=== PATIENT | male | born 1930 | race Caucasian/White ===

== ENCOUNTER 2016-12-22 22:41 | Emergency (ER) | payer OTHER, MEDICARE ==
[~2016-12-22] VITALS: Ht 165.1 cm; Wt 56.7 kg
[~2016-12-22 22:41] MED LIST: CIPRO250 MG PO; LOPRESSOR 25MG25 MG PO; METFORMIN HCL1000 MG PO; PERCOCET 325 MG1 TA2 PO; PRAVASTATIN SOD20 M1; PRINIVIL 5MG5 MG PO; TESSALON PERLE100 M1 PO
--- NOTE | 2016-12-22 22:55 | ED CARDIAC/CP/PALPITATIONS ---
History of Present Illness General Chief Complaint: Chest Pain Stated Complaint: CP Source: patient, family Exam Limitations: no limitations Vital Signs & Intake/Output Vital Signs & Intake/Output Vital Signs Date Time Temp Pulse Resp B/P Pulse O2 O2 Flow FiO2 Ox Delivery Rate 12/23 0306 96.6 83 20 101/60 97 Room Air 12/22 2342 96 12/228 Room Air 12/227 96.9 96 20 119/58 98 Room Air ED Intake and Output 12/23 0000 12/22 1200 Intake Total 400 Output Total Balance 400 Intake, IV 400 Patient 125 lb Weight Allergies Coded Allergies: NO KNOWN ALLERGIES (08/17/11) Reconcile Medications Benzonatate (Tessalon Perle) 100 MG CAPSULE 1 CAP PO TID PRN cough Metoprolol Tartrate (Lopressor) 25 MG TAB 1 TAB PO BID BP (Reported) Triage Nurses Notes Reviewed? yes Onset: Abrupt Duration: hour(s): (3) Timing: multiple episodes today Quality/Severity: sharp, stabbing Location: LEFT CHEST Radiation: back Activities at Onset: sleep Aspirin Today: no aspirin today HPI: This is an 86-year-old male with history of known lung cancer status post last radiation treatment one month ago presents to the ER with chief complaint of left-sided sharp chest pain that began 3 hours ago while lying down in bed. He states that it is sharp and lasts for a few seconds. No radiation of the pain. Positive associated cough with white phlegm which she states is been there for a long time. Denies any fever or chills. History of previous angioplasty more than 20 years ago. Patient follows with Dr. Meléndez and with Dr. PENG. No recent chemotherapy. The patient also reports that he is having issues with hernias and he is going to see Dr. Joe on Friday for them. Denies any vomiting or diarrhea. Denies any abdominal pressure or distention. Past History Travel History Traveled to [place] past 21 day No Medical History Any Pertinent Medical History? see below for history Neurological: NONE EENT: NONE Cardiovascular: hypertension, hyperlipidemia Respiratory: NONE Gastrointestinal: NONE Hepatic: NONE Renal: NONE Musculoskeletal: NONE Psychiatric: NONE Endocrine: diabetes Cancer(s): lung cancer Surgical History Surgical History: non-contributory Psychosocial History Who do you live with Spouse Services at Home None What is your primary language Cook Islander Family History Hx Contributory? No Review of Systems Review of Systems Constitutional: Denies: chills, fever. EENTM: Reports: no symptoms. Respiratory: Reports: hemoptysis, short of breath, sputum production. Cardiovascular: Reports: chest pain. Denies: palpitations. GI: Reports: abdominal pain. Genitourinary: Denies: discharge, dysuria. Musculoskeletal: Reports: no symptoms. Skin: Reports: no symptoms. Neurological/Psychological: Reports: anxiety. Hematologic/Endocrine: Denies: bruising, bleeding, polyuria, polydipsia. Immunologic/Allergic: Denies: splenectomy. All Other Systems: Reviewed and Negative Physical Exam Physical Exam General Appearance: well developed/nourished, alert, awake, anxious, mild distress Head: atraumatic, normal appearance Eyes: Bilateral: normal appearance, PERRL, EOMI. Ears, Nose, Throat: normal pharynx, hearing grossly normal Neck: normal inspection, supple, full range of motion Respiratory: chest non-tender, no respiratory distress, decreased breath sounds Cardiovascular: regular rate/rhythm Peripheral Pulses: 2+ radial (R), 2+ radial (L) Gastrointestinal: normal bowel sounds, soft, non-tender Extremities: normal inspection, normal range of motion, no edema Neurologic/Psych: no motor/sensory deficits, awake, alert, oriented x 3 Skin: intact, normal color, warm/dry Core Measures ACS in differential dx? Yes ASA ordered for poss ACS? Yes-ordered Severe Sepsis Present: No Septic Shock Present: No Progress Differential Diagnosis: AMI, aortic dissection, costochondritis, musculoskeletal pain, myocarditis, pericarditis, pneumonia, pneumothorax, pulmonary embolism, PUD/GERD, rib fracture, unstable angina, METASTATIC DISEASE Plan of Care: Orders Procedure Date/time Status TROPONIN LEVEL 12/23 0300 Complete EKG 12/23 0300 Active Add-on Test (ER Only) 12/22 2340 Active D-DIMER 12/22 2314 Complete TROPONIN LEVEL 12/22 2255 Complete PARTIAL THROMBOPLASTIN TIME 12/22 225 Complete PROTHROMBIN TIME 12/22 225 Complete COMPREHENSIVE METABOLIC PANEL 12/22 225 Complete CBC WITHOUT DIFFERENTIAL 12/22 2254 Complete EKG 12/22 2242 Active Laboratory Tests 12/23/16 0257: Troponin I 0.05 12/22/16 2314: Anion Gap 9, Estimated GFR > 60, BUN/Creatinine Ratio 17.5, Glucose 117 H, Calcium 9.2, Total Bilirubin 0.9, AST 14 L, ALT 26, Alkaline Phosphatase 120, Troponin I 0.04, Total Protein 6.5, Albumin 3.8, Globulin 2.7, Albumin/Globulin Ratio 1.4, PT 11.8, INR 1.13, APTT 33, D-Dimer 314 H, CBC w Diff NO MAN DIFF REQ, RBC 5.27, MCV 81.7, MCH 26.9 L, RDW 14.3, MPV 6.4 L, Gran % 80.2 H, Lymphocytes % 10.7 L, Monocytes % 8.3, Eosinophils % 0.3, Basophils % 0.5, Absolute Granulocytes 5.0, Absolute Lymphocytes 0.7 L, Absolute Monocytes 0.5, Absolute Eosinophils 0, Absolute Basophils 0, PUBS MCHC 33.0 12/23/2016 4:43:31 AM Repeat troponin is 0.05. No longer having any chest pain. Patient is a blistering ED without distress although his systolic blood pressure is 90. The daughter states he wants to go home and is hungry at this time. They've a follow-up plan with Dr. Joe in the office tomorrow and they will call Dr. Meléndez in the office today. I instructed them to return should his symptoms return or should he feel worse. (MARCELA DACOSTA,YOSELYN) Diagnostic Imaging: Viewed by Me: Radiology Read, CT Scan. Discussed w/RAD: Radiology Read, CT Scan. Radiology Impression: PATIENT: MIR ODONNELL PRESENT AGE: 86 PATIENT ACCOUNT NO: [id number] : 31 LOCATION: [facility] ORDERING PHYSICIAN: YOSELYN MEDRANO MD SERVICE DATE: 12/23/16 EXAM TYPE: CAT - CTA CHEST-PULMONARY EMBOLISM EXAMINATION: CT ANGIOGRAM OF THE CHEST WITH AND WITHOUT CONTRAST (CT PULMONARY ANGIOGRAM FOR PE) CLINICAL INFORMATION: Symptoms: LEFT SIDED CHEST PAIN, LUNG CANCER
COMPARISON: Multiple prior studies. Most recent exam chest x-ray 12/22/[address] of the chest 10/11/2016 TECHNIQUE: Prior to contrast administration, noncontrast localization images were obtained. Subsequently, multidetector volumetric imaging was performed from the thoracic inlet to below the diaphragms following the administration of 93 mL Optiray 320 intravenous contrast. No contrast reaction reported Sagittal, coronal, and MIP oblique sagittal reformatted images were obtained on the CT workstation, uploaded to PACS, and reviewed. Total exam dose-length product 246.43 mGy-cm FINDINGS: QUALITY OF STUDY/CONTRAST BOLUS: Satisfactory. PULMONARY ARTERIES: No central or segmental pulmonary emboli. THORACIC AORTA: Atherosclerotic vascular wall calcifications of aorta. The ascending aorta measures 3.1 cm transverse. No dissection of aorta. LUNG: Emphysematous lucency of the lung. There is a spiculated mass in the right lower lobe consistent with history of cancer measuring 2.1 x 1.2 cm. There is a 3 mm nodule in the right upper lobe image 37 (4) Atelectasis thickening of the major fissure on the left lung. PLEURA: Bilateral pleural effusions. The volume is small in the left small to moderate in volume on the right. Pleural effusions are new since CAT scan 07/2016. MEDIASTINUM: Soft tissue fullness in the mediastinum surrounding the subcarina pretracheal retrovascular space and AP window and around the great vessels. Soft tissue density extends into the right hilum. Findings of mediastinal and hilar adenopathy have diminished slightly since CAT scan 2015. No evidence of septal bowing or right heart strain. Enhancing nodule in the right lobe of thyroid measuring 1.6 cm. CHEST WALL/AXILLA: No axillary or internal mammary lymphadenopathy. OSSEOUS STRUCTURES: Multilevel degenerative change of the spine. Lytic and sclerotic lesion of the chest the eighth vertebrae. This correlates with the lesion seen on MR study of 07/31/2016 UPPER ABDOMEN: 1.3 cm nodule in the left adrenal gland. No focal abnormality visualized portions of liver and spleen. 2.1 cm gallstone at the neck of the gallbladder. IMPRESSION: 1. No evidence of pulmonary embolism. 2. Emphysematous changes of lung. 3. Spiculated mass in right lower lobe consistent with history of neoplasm. 3 mm nodule in right upper lobe. 4. Soft tissue density in the mediastinum and right hilum from adenopathy has diminished in prominence since CAT scan 10/11/2016. 5. Mixed lytic and sclerotic lesion in T8 vertebrae. 6. Bilateral pleural effusions larger in volume on right than left knee since prior CAT scan. VTE: negative DICTATED BY: MARLI JO MD DATE/TIME DICTATED:12/23/16148 SIDE SHOW ENTERTAINER:FRANK DATE/TIME TRANSCRIBED:12/23/16148 CONFIDENTIAL, DO NOT COPY WITHOUT APPROPRIATE AUTHORIZATION. <Electronically signed in Other Vendor System> SIGNED BY: MARLI JO MD 12/23/16208 CXR Impression: PATIENT: MRI ODONNELL PRESENT AGE : 86 PATIENT ACCOUNT NO: [id number] : 31 LOCATION: [facility] ORDERING PHYSICIAN: YOSELYN MEDRANO MD SERVICE DATE: 12/22/16 EXAM TYPE: RAD - XRY -PORTABLE CHEST XRAY EXAMINATION: XR PORTABLE CHEST CLINICAL INFORMATION: Left- sided chest pain. Cough. COMPARISON: Chest x-ray 10/11/2016 . CTA of the chest 10/11/2016 TECHNIQUE: Portable AP portable view of the chest was obtained. 11:05 PM FINDINGS: Right lower lobe nodular opacity seen on prior exams less apparent on today's study. No acute change of chest. No acute infiltrate. No pulmonary vascular congestion or pleural effusion. Cardiac and mediastinal contour are normal. There are calcifications of thoracic aorta. IMPRESSION: No acute change of the chest. DICTATED BY: MARLI JO MD DATE/TIME DICTATED:12/22/162320 SIDE SHOW ENTERTAINER:FRANK DATE/TIME TRANSCRIBED:12/22/162320 CONFIDENTIAL, DO NOT COPY WITHOUT APPROPRIATE AUTHORIZATION. <Electronically signed in Other Vendor System> SIGNED BY: MARLI JO MD 12/22/162327 Initial ED EKG: NSR, RBBB, nonspecific ST T wave chg, 1ST DEGREE AV BLOCK Repeat EKG: unchanged Rhythm Strip: normal sinus rhythm Departure Departure Time of Disposition: 433 Disposition: HOME OR SELF CARE Condition: Stable Clinical Impression Primary Impression: Left sided chest pain Referrals: ANGELA DACOSTA,MARIA R Atkinson (PCP/Family) Additional Instructions: Follow-up with your doctors in the office. Return to the ER for any changing or worsening symptoms. Take Tylenol as needed for pain. Departure Forms: Customer Survey General Discharge Information Critical Care Note Critical Care Note Critical Care Time: non-applicable
[2016-12-22 23:25] LABS: ABSOLUTE BASOPHIL COUNT 0 /CUMM (0.0-0.2); ABSOLUTE EOSINOPHIL COUNT 0 /CUMM (0.0-0.7); ABSOLUTE LYMPH COUNT 0.7 /CUMM (1.2-3.4); ABSOLUTE MONOCYTE COUNT 0.5 /CUMM (0.10-0.60); BASOPHIL % 0.5 % (0.0-2.0); EOSINOPHIL % 0.3 % (0-5); GRANULOCYTE % 80.2 % (42.2-75.2); MEAN CORPUSCULAR HGB 26.9 PG (27.0-31.0); MEAN CORPUSCULAR VOLUME 81.7 FL (80.0-94.0); MEAN PLATELET VOLUME 6.4 FL (7.4-10.4); PLATELET COUNT 168 /CUMM (130-400); RBC DISTRIBUTION WIDTH 14.3 % (11.5-14.5); RED BLOOD CELL CT 5.27 /CUMM (4.70-6.10); WHITE BLOOD CELL COUNT 6.2 /CUMM (4.8-10.8)
--- NOTE | 2016-12-22 23:28 | RADIOLOGY REPORT ---
EXAMINATION: XR PORTABLE CHEST CLINICAL INFORMATION: Left-sided chest pain. Cough. COMPARISON: Chest x-ray 10/11/2016 . CTA of the chest 10/11/2016 TECHNIQUE: Portable AP portable view of the chest was obtained. 11:05 PM FINDINGS: Right lower lobe nodular opacity seen on prior exams less apparent on today's study. No acute change of chest. No acute infiltrate. No pulmonary vascular congestion or pleural effusion. Cardiac and mediastinal contour are normal. There are calcifications of thoracic aorta. IMPRESSION: No acute change of the chest.
[2016-12-22 23:35] LABS: PT 11.8 SEC (9.4-12.5); PTT 33 SEC (25-37)
--- NOTE | 2016-12-23 02:09 | CT SCAN REPORT ---
EXAMINATION: CT ANGIOGRAM OF THE CHEST WITH AND WITHOUT CONTRAST (CT PULMONARY ANGIOGRAM FOR PE) CLINICAL INFORMATION: Symptoms: LEFT SIDED CHEST PAIN, LUNG CANCER
COMPARISON: Multiple prior studies. Most recent exam chest x-ray 12/22/[address] of the chest 10/11/2016 TECHNIQUE: Prior to contrast administration, noncontrast localization images were obtained. Subsequently, multidetector volumetric imaging was performed from the thoracic inlet to below the diaphragms following the administration of 93 mL Optiray 320 intravenous contrast. No contrast reaction reported Sagittal, coronal, and MIP oblique sagittal reformatted images were obtained on the CT workstation, uploaded to PACS, and reviewed. Total exam dose-length product 246.43 mGy-cm FINDINGS: QUALITY OF STUDY/CONTRAST BOLUS: Satisfactory. PULMONARY ARTERIES: No central or segmental pulmonary emboli. THORACIC AORTA: Atherosclerotic vascular wall calcifications of aorta. The ascending aorta measures 3.1 cm transverse. No dissection of aorta. LUNG: Emphysematous lucency of the lung. There is a spiculated mass in the right lower lobe consistent with history of cancer measuring 2.1 x 1.2 cm. There is a 3 mm nodule in the right upper lobe image 37 (4) Atelectasis thickening of the major fissure on the left lung. PLEURA: Bilateral pleural effusions. The volume is small in the left small to moderate in volume on the right. Pleural effusions are new since CAT scan 10/11/2016. MEDIASTINUM: Soft tissue fullness in the mediastinum surrounding the subcarina pretracheal retrovascular space and AP window and around the great vessels. Soft tissue density extends into the right hilum. Findings of mediastinal and hilar adenopathy have diminished slightly since CAT scan 10/11/2016. No evidence of septal bowing or right heart strain. Enhancing nodule in the right lobe of thyroid measuring 1.6 cm. CHEST WALL/AXILLA: No axillary or internal mammary lymphadenopathy. OSSEOUS STRUCTURES: Multilevel degenerative change of the spine. Lytic and sclerotic lesion of the chest the eighth vertebrae. This correlates with the lesion seen on MR study of 07/31/2016 UPPER ABDOMEN: 1.3 cm nodule in the left adrenal gland. No focal abnormality visualized portions of liver and spleen. 2.1 cm gallstone at the neck of the gallbladder. IMPRESSION: 1. No evidence of pulmonary embolism. 2. Emphysematous changes of lung. 3. Spiculated mass in right lower lobe consistent with history of neoplasm. 3 mm nodule in right upper lobe. 4. Soft tissue density in the mediastinum and right hilum from adenopathy has diminished in prominence since CAT scan 10/11/2016. 5. Mixed lytic and sclerotic lesion in T8 vertebrae. 6. Bilateral pleural effusions larger in volume on right than left knee since prior CAT scan. VTE: negative
[2016-12-23 04:41] VITALS: BP 93/57
[2016-12-31] MEDS ORDERED: SYMBICORT 16010.2 GM (11:57)
== END 2016-12-23 04:47 ==
LOC: ERH 22:41
PROVIDERS: Emergency Medicine
DX: R07.9 Chest pain, unspecified (principal)
CPT/HCPCS: 1263; 93005; 93010; 96374; J0131; J1885

== ENCOUNTER → 2017-01-29 | Day surgery (SDC) | payer OTHER, MEDICARE ==
[~2017-01-29] VITALS: Ht 160 cm; Wt 49.0 kg
[~2017-01-29] MED LIST changes: +SYMBICORT 16010.2 GM
--- NOTE | 2017-01-29 20:33 | Operative Report ---
Operative/Inv Procedure Report Surgery Date: 01/29/17 Name of Procedure: Laparoscopic recurrent left inguinal hernia Laparoscopic primary right inguinal hernia repair Pre-Operative Diagnosis: Recurrent left inguinal hernia Right inguinal hernia Post-Operative Diagnosis: Same same Estimated Blood Loss: scant Surgeon/Livestock Nutritionist: ANDREIA DACOSTA,MIRADNA Amador/Jcarlos montalvo Anesthesia: general endotracheal tube Implants: Parietex mesh Operative/Procedure Note Note: After consent patient is brought to the operating room laid supine. General anesthesia was obtained and the abdomen was prepped and draped. Skin was anesthetized with local anesthesia and a transverse infraumbilical incision made sharply. We identified the rectus fascia and incised transversely. Stay sutures were placed. Rectus muscle was retracted laterally and a dissecting balloon placed posterior to it. It was inflated under direct vision the camera and replaced with a blunt Bautista port. Gas was instilled. 2, 5 mm ports were placed in the infraumbilical midline after local anesthesia was instilled and under direct vision and camera. Began our dissection at the pubis and delineated the symphysis. Jack's ligament was identified and cleared. Then dissected laterally and developed the iliopubic tract. The cord structures were circumferentially dissected. Once the dissection was completed a right-sided piece of Parietex mesh was placed in the cavity. It was placed around the cord structures re-create the internal ring and cover the femoral and direct spaces as well. After completion of the right-sided hernia repair, attention was turned to the left side. In a similar fashion coopers ligament was delineated. We dissected laterally and developed the iliopubic tract. There is no indirect hernia. There is adherent peritoneum to the cord structures which was taken down sharply. A small hole the peritoneum was made which was repaired with Endoloop. There was a small indirect hernia which was reflected inferiorly. In a similar fashion left-sided Parietex mesh was placed. Once the mesh was in proper position, ,as was allowed to escape on maintaining proper orientation of the mesh. The fascia was closed with 0 Vicryl suture. Skin incisions closed with 4-0 Vicryl. Steri-Strips and sterile dressing applied. Sponge and needle counts are correct. CC: ANGELA DACOSTA,MARIA R Atkinson
== END ==
LOC: STS 01-22 07:00
DX: K40.91 Unilateral inguinal hernia, without obstruction or gangrene, recurrent (principal); K40.90 Unilateral inguinal hernia, without obstruction or gangrene, not specified as recurrent; J44.9 Chronic obstructive pulmonary disease, unspecified; Z85.118 Personal history of other malignant neoplasm of bronchus and lung; Z87.891 Personal history of nicotine dependence; E11.9 Type 2 diabetes mellitus without complications; Z79.84 Long term (current) use of oral hypoglycemic drugs
CPT/HCPCS: C1781; J0131; J0690; J2250